=== PATIENT | male | born 1985 | race Caucasian/White ===

== ENCOUNTER 2021-03-02 11:25 | Emergency (ER) | payer OTHER ==
[~2021-03-02] VITALS: Ht 182.9 cm; Wt 81.6 kg
--- NOTE | 2021-03-02 11:39 | NUR ---
Pt was carrying beer bottle 6-pack when 1 broke and a piece of glass shot up and hit pt on forehead. Pt has approx 6cm lac on forehead, no current bleeding, well approximated, and slight lightheadedness. Pt denies CP, SOB, n/v, no other complaints, no distress noted. Addendum: 03/02/21 at 1301 by [email or web address] approx 3cm lac
[2021-03-02 13:02] VITALS: BP 117/81
--- NOTE | 2021-03-02 13:02 | NUR ---
Gave pt d/c instructions, pt verbalized understanding.
== END 2021-03-02 13:04 | disposition home or self-care (01) ==
LOC: ER 11:25
DX: S01.81XA Laceration without foreign body of other part of head, initial encounter (principal); W25.XXXA Contact with sharp glass, initial encounter; Y93.89 Activity, other specified; Y92.89 Other specified places as the place of occurrence of the external cause; Z88.0 Allergy status to penicillin
CPT/HCPCS: 70250; A4663